=== PATIENT | male | born 1970 | race American Indian/Alaskan Native ===

== ENCOUNTER 2019-01-24 08:56 | Outpatient (CLI) | payer BC ==
--- NOTE | 2019-01-24 09:29 | XRay Report ---
LUMBAR SPINE RADIOGRAPHS: INDICATION: Lumbar back pain. COMPARISON: None similar at this institution. FINDINGS: AP and lateral lumbar spine radiographs demonstrate moderate to severe L4-L5 and L5-S1 disc narrowing with spurring and slight endplate irregularities. Mild L2-L3 degenerative spurring also noted. Normal remainder vertebral body and disc heights. Intact SI joints. Nonobstructive bowel gas pattern. Few right lower quadrant mesh hernia repair homa. CONCLUSION: No acute radiographic abnormality with lumbar spine degenerative and right lower quadrant postsurgical changes noted, as described. Thank you for the opportunity to participate in this patient's care.
== END 2019-01-24 08:57 | disposition home or self-care (01) ==
LOC: XRAY 08:56
PROVIDERS: ATTEND Internal Medicine
DX: M54.5 Low back pain (principal); Z98.890 Other specified postprocedural states
CPT/HCPCS: 72100

== ENCOUNTER 2019-02-22 11:20 | Outpatient (CLI) | payer BC ==
[2019-02-22 11:36] LABS: Hematocrit 43.1 % (35.5-45.6); Hemoglobin 14.5 gm/dl (11.8-15.2); Mean Corpuscular HGB Conc 34 % (32-34); Mean Corpuscular Volume 88 fl (84-94); Platelet Count 170 K/mm3 (140-440); Red Blood Count 4.89 M/mm3 (3.65-5.03); Red Cell Distribution Width 12.7 % (13.2-15.2)
[2019-02-22 11:59] LABS: Alanine Aminotransferase 35 units/L (7-56); Albumin 4.2 g/dL (3.9-5); BUN/Creatinine Ratio 5; Blood Urea Nitrogen 6 mg/dL (9-20); Calcium 9.1 mg/dL (8.4-10.2); Hemolysis Index 8; LDL Cholesterol,Direct 93 mg/dL (50-130)
[2019-02-22 12:40] LABS: Platelet Estimate Consistent w Auto; RBC Morphology Normal; Total Cells Counted 100
[2019-02-22 12:55] LABS: Chol/HDL Ratio 2.37 %; HDL Cholesterol 69 mg/dL (40-59)
== END 2019-02-22 11:21 | disposition home or self-care (01) ==
LOC: LAB 11:20
PROVIDERS: ATTEND Internal Medicine
DX: Z00.00 Encounter for general adult medical examination without abnormal findings (principal)
CPT/HCPCS: 36415; 80053; 80061; 84153; 85007; 85025

== ENCOUNTER 2019-03-21 08:51 | Outpatient (CLI) | payer BC | END 2019-03-21 08:52 | disposition home or self-care (01) | LOC: ECHO 08:51 | PROVIDERS: ATTEND Internal Medicine | DX: I08.1 Rheumatic disorders of both mitral and tricuspid valves (principal) | CPT/HCPCS: 93306 ==